=== PATIENT | female | born 1960 | race Caucasian/White ===

== ENCOUNTER 2016-12-20 11:38 | Day surgery (SDC) | payer BC ==
--- NOTE | ~2016-12-20 | EGD ---
EGD REPORT [facility] [address] [id number] NAME: JOSESITO WILLIAMSON : 58 STATUS : REG [facility]#: [id number] AGE: 56 ADM/REG DATE : 12/20/16 MR#: [id number] REPORT SERV DATE: 12/20/16 DICTATED BY: TIARA LEYVA DATE: 12/20/16 REPORT STATUS : Draft TRANSCRIBED BY: [facility] DATE: 12/20/16 Endoscopy Center Patient Name: Josesito Williamson Date of : 1960 Attending MD: TIARA LEYVA MD Procedure Date No Time: 12/20/2016 Procedure: Colonoscopy Indications: Screening in patient at increased risk: Colorectal cancer in father 60 or older Referring MD: Jim Miranda Medicines: Monitored Anesthesia Care Complications: No immediate complications. Procedure: Pre-Anesthesia Assessment: - ASA Grade Assessment: III - A patient with severe systemic disease. After I obtained informed consent, the scope was passed under direct vision. Throughout the procedure, the patient's blood pressure, pulse, and oxygen saturations were monitored continuously. The [facility] [id number] was introduced through the anus and advanced to the cecum, identified by appendiceal orifice and ileocecal valve. The colonoscopy was performed without difficulty. The patient tolerated the procedure well. The quality of the bowel preparation was adequate. Findings: The digital rectal exam was normal. Pertinent negatives include no palpable rectal lesions. Two sessile polyps were found in the transverse colon. The polyps were 4 to 5 mm in size. These polyps were removed with a cold biopsy forceps. Resection and retrieval were complete. A sessile polyp was found in the descending colon. The polyp was 5 mm in size. The polyp was removed with a cold biopsy forceps. Resection and retrieval were complete. Two sessile polyps were found in the sigmoid colon. The polyps were 3 to 4 mm in size. These polyps were removed with a cold biopsy forceps. Resection and retrieval were complete. Hemorrhoids were found during retroflexion and were moderate. Impression: - Two 4 to 5 mm polyps in the transverse colon. Resected and retrieved. - One 5 mm polyp in the descending colon. Resected and retrieved. - Two 3 to 4 mm polyps in the sigmoid colon. Resected and retrieved. EGD REPORT [address] [address] NAME: JOSESITO WILLIAMSON : 58 STATUS : REG [facility] PAT#: [id number] AGE: 56 ADM/REG DATE : 12/20/16 MR#: [id number] REPORT SERV DATE: 12/20/16 DICTATED BY: TIARA LEYVA DATE: 12/20/16 REPORT STATUS : Draft TRANSCRIBED BY: [facility] DATE: 12/20/16 Recommendation: - Patient has a contact number available for emergencies. The signs and symptoms of potential delayed complications were discussed with the patient. Return to normal activities tomorrow. Written discharge instructions were provided to the patient. - Regular diet. - Continue present medications. - Await pathology results. - Repeat colonoscopy in 3 - 5 years for surveillance based on pathology results. - Return to GI clinic PRN. Procedure Code(s): --- Professional --- 67738, Colonoscopy, flexible, proximal to splenic flexure; with biopsy, single or multiple Diagnosis Code(s): --- Professional --- D12.5, Benign neoplasm of sigmoid colon D12.4, Benign neoplasm of descending colon D12.3, Benign neoplasm of transverse colon Z12.11, Encounter for screening for malignant neoplasm of colon Z80.0, Family history of malignant neoplasm of digestive organs CPT copyright 2013 [employer]. All rights reserved. The codes documented in this report are preliminary and upon sheet metal worker review may be revised to meet current compliance requirements. TIARA LEYVA MD 12/20/2016 2:29 PM This report has been signed electronically. Number of Addenda: 0 Note Initiated On: 12/20/2016 1:57 PM [address] [id number]
[~2016-12-20 11:38] MED LIST: B12250T PO; CALTRA600D PO; CRESTOR20 MG PO; FISH-EPA1000 MG PO; HALF81 PO; LOPRESS HCT1 TAB PO; MULTIVITAMI1 PO; NEUR300 PO; POTASSIUM GLUCO99 MG; POTASSIUM GLUCO99 MG PO; PREDNISONE2.5 MG PO; PRIN10 PO
== END 2016-12-20 23:59 | disposition home or self-care (01) ==
LOC: DMU 11:38
PROVIDERS: Internal Medicine Gastroenterology
PROC: 0DBN8ZZ Excision of Sigmoid Colon, Via Natural or Artificial Opening Endoscopic (ICD-10-PCS; 2016-12-20)
PROC: 0DBM8ZZ Excision of Descending Colon, Via Natural or Artificial Opening Endoscopic (ICD-10-PCS; 2016-12-20)
PROC: 0DBL8ZZ Excision of Transverse Colon, Via Natural or Artificial Opening Endoscopic (ICD-10-PCS; principal; 2016-12-20 13:00)
DX: Z12.11 Encounter for screening for malignant neoplasm of colon (principal); D12.3 Benign neoplasm of transverse colon; D12.4 Benign neoplasm of descending colon; D12.5 Benign neoplasm of sigmoid colon; Z80.0 Family history of malignant neoplasm of digestive organs; I25.10 Atherosclerotic heart disease of native coronary artery without angina pectoris; I10 Essential (primary) hypertension; E78.5 Hyperlipidemia, unspecified; M06.9 Rheumatoid arthritis, unspecified; Z88.1 Allergy status to other antibiotic agents; Z88.8 Allergy status to other drugs, medicaments and biological substances; Z79.52 Long term (current) use of systemic steroids; Z79.899 Other long term (current) drug therapy; Z98.51 Tubal ligation status; Z98.890 Other specified postprocedural states
CPT/HCPCS: 88305